=== PATIENT | female | born 1955 | race Caucasian/White ===

== ENCOUNTER 2017-09-02 07:49 | Day surgery (SDC) | payer OTHER ==
[~2017-09-02 07:49] MED LIST: AMLODIPINE BESYL5 MG PO; JARDIANCE10 MG PO; LISINOPRIL40 MG PO; ZANTAC150 M3 PO
== END 2017-09-02 17:00 | disposition home or self-care (01) ==
LOC: CIR.AMB 07:49
DX: M75.122 Complete rotator cuff tear or rupture of left shoulder, not specified as traumatic (principal); S46.212A Strain of muscle, fascia and tendon of other parts of biceps, left arm, initial encounter